=== PATIENT | male | born 1960 | race Two or more races ===

== ENCOUNTER 2018-08-03 08:43 | Emergency (ER) | payer OTHER ==
[~2018-08-03] VITALS: Ht 167.6 cm; Wt 83.5 kg
[2018-08-03 09:02] VITALS: BP 151/82
== END 2018-08-03 09:42 | disposition home or self-care (01) ==
LOC: ER 08:43
DX: H66.012 Acute suppurative otitis media with spontaneous rupture of ear drum, left ear (principal); I10 Essential (primary) hypertension